=== PATIENT | male | born 1945 | race Caucasian/White ===

== ENCOUNTER 2022-06-23 13:48 | Emergency (ER) | payer MEDICARE, SELFPAY ==
--- NOTE | ~2022-06-23 | CT_ITS ---
EXAMINATION: CT ANGIOGRAM OF THE CHEST WITH AND WITHOUT CONTRAST (CT PULMONARY ANGIOGRAM FOR PE) CLINICAL INFORMATION: Reason for Exam weakness tachycardia with shortness of breath COMPARISON: None TECHNIQUE: Prior to contrast administration, noncontrast localization images were obtained. Subsequently, multidetector volumetric imaging was performed from the thoracic inlet to below the diaphragms following the administration of 65 mL Omnipaque 350 intravenous contrast. No contrast reaction reported Sagittal, coronal, and MIP oblique sagittal reformatted images were obtained on the CT workstation, uploaded to PACS, and reviewed. This CT examination was performed using dose optimization techniques as appropriate, variously including the following: *Automated exposure control *Adjustment of mA and/or kV according to patient size (this includes techniques or standardized protocols for targeted exams where dose is matched to indication/reason for exam; i.e. extremities or head) *Use of iterative reconstruction technique Total exam dose-length product 274 mGy-cm FINDINGS: QUALITY OF STUDY/CONTRAST BOLUS: Satisfactory. PULMONARY ARTERIES: There is no filling defect to suggest a pulmonary embolism. There is reflux of contrast into the hepatic veins. There is no bowing of the interventricular septum. The thoracic inlet is within normal limits. The axillary regions are unremarkable. Partially visualized upper abdominal structures within normal limits. Cystic structure on the inferior most cuts may represent partial imaging of the renal cyst. Centrally there is some increased adenopathy in the mediastinum. There is also felt to be some right greater than left hilar adenopathy. Right lung; Dense consolidation in the right upper lung. Scattered areas of lucency in some areas are noted here. Patchy infiltrate in the right middle lobe. There is a small right-sided effusion. Mild right basilar atelectasis. Some mild patchy airspace opacities in the right lower lobe. Left lung; Left basilar atelectasis or small area of infiltrate. Trace left-sided effusion. Review of the bone windows does not demonstrate evidence for bony lesion. CT/CT angio chest PE protocol IMPRESSION: There is no filling defect here to suggest a pulmonary bolus. There is reflux of contrast however into the hepatic veins of uncertain etiology. Dense consolidation in the right upper lung. Otherwise patchy infiltrates in the right lower lobe and right middle lobe and left base. Short-term Follow-up would be recommended here as an underlying lesion cannot be excluded in this area of dense right upper lung opacity. Prominent central adenopathy and right hilar adenopathy may well be reactive. Again Attention to follow-up VTE: negative
[2022-06-23 14:02] VITALS: BP 116/65; PULSE 130; PULSE 89; RESP 16; TEMP 36.6; O2SAT 99; BMI 19.3
[2022-06-23 14:13] VITALS: BP 118/73; PULSE 120; RESP 20; O2SAT 100
--- NOTE | 2022-06-23 14:49 | ECG_ITS ---
Test Reason : DYSRYTHMIA Blood Pressure : / mmHG Vent. Rate : 116 BPM Atrial Rate : 116 BPM P-R Int : 160 ms QRS Dur : 082 ms QT Int : 316 ms P-R-T Axes : 039 -05 148 degrees QTc Int : 439 ms Sinus tachycardia with Premature atrial complexes Inferior infarct , age undetermined Anterior infarct , age undetermined Marked ST abnormality, possible lateral subendocardial injury Abnormal ECG No previous ECGs available Referred By: Shadi Sharp Electronically Signed By:NONI RODRIGUEZ
--- NOTE | 2022-06-23 14:49 | PC.NURSE ---
report received from MARGI Calhoun. Pt is resting comfortably on stretcher at this time. pt reports having diffuse breathing pain across his chest, into upper shoulders. Pt is afib on the monitor at a rate of 110s-140s. Pt is having a couple PVCs per minute along with less than 1 second pauses in between. Dr. Sharp made aware. This RN placed order for EKG, PCT Elie in room at this time performing EKG. Pt also reports feeling weaker than usual
--- NOTE | 2022-06-23 14:55 | ED.WEAKNESS ---
HPI - Weakness General Chief complaint: Weakness Stated complaint: WEAKNESS Time Seen by Provider: 06/23/22 14:48 Source: patient, EMS and RN notes reviewed Mode of arrival: EMS Limitations: no limitations History of Present Illness HPI Narrative: 77 year old male presents to the ER after failing to thrive and worsening shortness of breath for the past several months. He saw his PCP and was sent here. No previous visits here the only history we know about is that he has history of afib. He is in Afib with RVR here. He is unable to tell me about copd or chf. He is tachycardic no falls injuries chest pain nausea or vomiting. He is spitting into a bag. He is short of breath. Related Data Allergies Allergy/AdvReac Type Severity Reaction Status Date / Time No Known Allergies Allergy Verified 06/23/22 14:48 Review of Systems Review of Systems: Review of systems: General: fever chillsPatient denies any recent illness or falls Musculoskeletal: Denies back pain or body aches or other injuries HEENT: denies headache, runny nose, ear pain Respiratory: shortness of breath, cough Cardiovascular: no chest pain or palpitations : denies dysuria, frequency Abdomen: no nausea vomiting denies abdominal pain Extremities: no swelling, no pain Skin: no diaphoresis Yes all other systems are reviewed and are negative PMFSH Social History Social History Advance Directives: Yes Advance Directives Information Provided: Yes Advance Directives on File: No Physical Exam Vital Signs: Vital Signs: Last Vital Signs Temp 97.9 F 06/23/22 14:02 Pulse 111 H 06/23/22 17:18 Resp 16 06/23/22 17:18 BP 93/60 06/23/22 17:18 Pulse Ox 99 06/23/22 17:18 O2 Del Method 06/23/22 17:18 BMI result Body Mass Index 20.5 General: Well-appearing well-nourished in no signs of distress HEENT: Normocephalic atraumatic Neck: No signs of JVD, no masses no tenderness or lymphadenopathy Cardiovascular: Regular rate and rhythm Respiratory: Clear to auscultation bilaterally Abdomen: Soft nontender no masses Extremities: Normal pedal pulses no signs of edema Skin: Dry warm no rashes Back: No tenderness full ROM Medications Administered Discontinued Medications Generic Name Dose Route Start Last Admin Trade Name Freq PRN Reason Stop Dose Admin Albuterol Sulfate 4 puff 06/23/22 14:56 06/23/22 15:28 Albuterol Sulfate 90 Mcg 8 Gm Inhaler INHALE 06/23/22 14:57 4 puff ONCE ONE Administration Aspirin 324 mg 06/23/22 16:21 06/23/22 17:06 Aspirin 81 Mg Tab.Chew PO 06/23/22 16:22 324 mg ONCE ONE Administration Sodium Chloride 1,000 mls @ 999 mls/hr 06/23/22 15:00 06/23/22 16:12 Ns IV 06/23/22 16:00 Infused .Q1H1M KATTY Infusion Vancomycin HCl 1,500 mg/ 500 mls @ 333.333 mls/hr 06/23/22 16:27 06/23/22 17:14 Sodium Chloride IV 06/23/22 17:56 333.33 mls/hr ONCE ONE Administration Piperacillin Sod/Tazobactam 100 mls @ 200 mls/hr 06/23/22 16:27 06/23/22 17:27 Sod 4.5 gm/ Sodium Chloride IV 06/23/22 16:56 Infused ONCE ONE Infusion Sodium Chloride 1,000 mls @ 999 mls/hr 06/23/22 17:00 06/23/22 17:04 Ns IV 06/23/22 18:00 999 mls/hr .Q1H1M KATTY Administration Iohexol 100 ml 06/23/22 16:42 06/23/22 16:42 Iohexol 350 Mg/Ml 100 Ml Infus..Btl IV 06/23/22 16:43 65 ml ONCE ONE Administration Prednisone 60 mg 06/23/22 14:56 06/23/22 15:28 Prednisone 20 Mg Tablet PO 06/23/22 14:57 60 mg ONCE ONE Administration Medical Decision Making Medical Decision Making MDM Narrative: Patient 2 months of decreased appetite increased fatigue and not feeling well he states he is very short of breath comes with AFib RVR at home and history for the patient after the patient prednisone will give the patient some breathing treatments this evening the patient feeling better also get a workup for congestive heart failure he had x-rays labs and a septic workup on the patient. Patient with elevated WBC count found to have a elevated troponin and WBC' count I will start on vancomycin and zosyn. I did speak with Dr. Encarnacion who reviewed the chart as well and didn't think the EKG was ischemic or that he had afib. WAnted heparin from a cardiac standpoint. Heparin ordered. Lactic is 2.2 I will give fluids and continue to treat. I did see the patient with Dr. Aggarwal who did see the patient. We reviewed the CT which shows lobar pneumonia. Already given zosyn and vancomycin. Even with the read of pneumonia with elevated WBC count. He still feels patient needs to go to another facility even with cardiology being comfortable keeping the patient. Patient comfortable at the bedside. Still pending [facility] to call back. 1800 Repeat EKG 109 sinus tachycardia still with ST depression but much less pronouced at this time. I spoke with [facility] who will accept the patient to the CCU accepted by Dr. Ortiz. I spoke with the cardiology attending who agreed with the transfer. I again spoke with Dr. Aggarwal who did not want the patient to get 1 liter bolus and felt small amount of fluids were more ideal for the patient with his global cardiomyopathy and agreed would do better with little fluids. I did cancel the fluids. Concern for CHF and and fluids overload as his IVC is already dilated on CT and US that was done at bedside. WE will avoid too much fluid in this situation even with pneumonia. Differential Diagnosis Differential Diagnoses: The differential diagnosis associated with the presentation includes Congestive heart failure sepsis UTI pneumonia influenza COVID-19 dehydration electrolyte abnormalities starvation. Admission/Observation Consideration of admission/observation: Escalation of care including admission/observation considered Consult Healthcare Provider Management of the patient was discussed with: Hospitalist and Manager Application Development Cardiology Lab Data MDM Lab Attestation statement: I reviewed the patient's lab results. Result Diagrams: 06/23/22 15:25 06/23/22 15:25 Labs: Lab Results 06/23/22 06/23/22 06/23/22 Range/Units 15:25 15:25 15:25 WBC 25.2 H (4.8-10.8) X10*3/uL RBC 3.77 L (4.60-5.80) X10*6/uL Hgb 9.9 L (14.0-18.0) g/dl Hct 29.8 L (42.0-52.0) % MCV 79.0 L (80.0-98.0) fL MCH 26.3 L (27.0-33.0) pg MCHC 33.2 (31.0-36.0) g/dl RDW 16.1 H (11.0-16.0) % Plt Count 566 H (160-400) X10*3/uL MPV 9.9 (9.4-12.4) fL Immature Gran % (Auto) 0.6 H (0.0-0.4) % Neut % (Auto) 93.8 H (45-73) % Lymph % (Auto) 1.6 L (20-40) % [place] % (Auto) 3.8 (2-11) % Eos % (Auto) 0.0 (0-4) % Baso % (Auto) 0.2 (0-2) % Lymph # (Auto) 0.4 L (1.2-4.9) X10*3/uL [place] # (Auto) 1.0 (0.1-1.2) X10*3/uL Eos # (Auto) 0.0 (0.0-0.4) X10*3/uL Baso # (Auto) 0.1 (0.0-0.2) X10*3/uL Abs Immat Gran (auto) 0.16 H (0.00-0.03) X10*3/uL Absolute Neuts (auto) 23.6 H (2.0-8.3) x10*3/uL Absolute Nucleated RBC 0.000 (0.0-0.012) X10*3/uL Nucleated RBC % (auto) 0.0 (0.0-0.2) /100WBC Smear Tech's Comments VERIFIED PT (10.0-13.1) SEC INR (0.9-1.1) aPTT Heparin Protocol (53-77.9) SEC D-Dimer High Sensitivty NG/ML Sodium 134 L (135-145) mmol/L Potassium 3.2 L (3.3-5.1) mmol/L Chloride 97 (96-108) mmol/L Carbon Dioxide 23 (22-29) mmol/L Anion Gap 17 (12-20) BUN 22 H (9-16) mg/dL Creatinine 0.79 (0.5-1.4) mg/dL Estim Creat Clear Calc 63.8 Estimated GFR > 60 Random Glucose 121 H (60-115) mg/dL Lactic Acid (0.5-2.0) mmol/L Calcium 8.7 (8.4-10.2) mg/dL Total Bilirubin 1.0 (0.0-1.0) mg/dL Direct Bilirubin 0.5 (0.0-0.5) mg/dL AST 18 (5-37) U/L ALT 18 (0-40) U/L Alkaline Phosphatase 178 H (39-117) U/L Troponin I High Sens 277.7 H* (<3.5-35.0) ng/L B-Natriuretic Peptide (<100) pg/mL Total Protein 6.5 (6.5-8.0) g/dL Albumin 3.2 L (3.5-5.0) g/dL Lipase 10 (8-78) U/L COVID-19 (DELFINA) (Negative) COVID-19 Clin Com Influenza Type A (IRA) (Negative) Influenza Type B (IRA) (Negative) Influenza A & B Note 06/23/22 06/23/22 06/23/22 Range/Units 15:25 15:25 15:25 WBC (4.8-10.8) X10*3/uL RBC (4.60-5.80) X10*6/uL Hgb (14.0-18.0) g/dl Hct (42.0-52.0) % MCV (80.0-98.0) fL MCH (27.0-33.0) pg MCHC (31.0-36.0) g/dl RDW (11.0-16.0) % Plt Count (160-400) X10*3/uL MPV (9.4-12.4) fL Immature Gran % (Auto) (0.0-0.4) % Neut % (Auto) (45-73) % Lymph % (Auto) (20-40) % [place] % (Auto) (2-11) % Eos % (Auto) (0-4) % Baso % (Auto) (0-2) % Lymph # (Auto) (1.2-4.9) X10*3/uL [place] # (Auto) (0.1-1.2) X10*3/uL Eos # (Auto) (0.0-0.4) X10*3/uL Baso # (Auto) (0.0-0.2) X10*3/uL Abs Immat Gran (auto) (0.00-0.03) X10*3/uL Absolute Neuts (auto) (2.0-8.3) x10*3/uL Absolute Nucleated RBC (0.0-0.012) X10*3/uL Nucleated RBC % (auto) (0.0-0.2) /100WBC Smear Tech's Comments PT (10.0-13.1) SEC INR (0.9-1.1) aPTT Heparin Protocol (53-77.9) SEC D-Dimer High Sensitivty NG/ML Sodium (135-145) mmol/L Potassium (3.3-5.1) mmol/L Chloride (96-108) mmol/L Carbon Dioxide (22-29) mmol/L Anion Gap (12-20) BUN (9-16) mg/dL Creatinine (0.5-1.4) mg/dL Estim Creat Clear Calc Estimated GFR Random Glucose (60-115) mg/dL Lactic Acid (0.5-2.0) mmol/L Calcium (8.4-10.2) mg/dL Total Bilirubin (0.0-1.0) mg/dL Direct Bilirubin (0.0-0.5) mg/dL AST (5-37) U/L ALT (0-40) U/L Alkaline Phosphatase (39-117) U/L Troponin I High Sens (<3.5-35.0) ng/L B-Natriuretic Peptide 537 H (<100) pg/mL Total Protein (6.5-8.0) g/dL Albumin (3.5-5.0) g/dL Lipase (8-78) U/L COVID-19 (DELFINA) Negative (Negative) COVID-19 Clin Com See Note Influenza Type A (IRA) Negative (Negative) Influenza Type B (IRA) Negative (Negative) Influenza A & B Note See Note 06/23/22 06/23/22 06/23/22 Range/Units 15:51 17:35 17:43 WBC (4.8-10.8) X10*3/uL RBC (4.60-5.80) X10*6/uL Hgb (14.0-18.0) g/dl Hct (42.0-52.0) % MCV (80.0-98.0) fL MCH (27.0-33.0) pg MCHC (31.0-36.0) g/dl RDW (11.0-16.0) % Plt Count (160-400) X10*3/uL MPV (9.4-12.4) fL Immature Gran % (Auto) (0.0-0.4) % Neut % (Auto) (45-73) % Lymph % (Auto) (20-40) % [place] % (Auto) (2-11) % Eos % (Auto) (0-4) % Baso % (Auto) (0-2) % Lymph # (Auto) (1.2-4.9) X10*3/uL [place] # (Auto) (0.1-1.2) X10*3/uL Eos # (Auto) (0.0-0.4) X10*3/uL Baso # (Auto) (0.0-0.2) X10*3/uL Abs Immat Gran (auto) (0.00-0.03) X10*3/uL Absolute Neuts (auto) (2.0-8.3) x10*3/uL Absolute Nucleated RBC (0.0-0.012) X10*3/uL Nucleated RBC % (auto) (0.0-0.2) /100WBC Smear Tech's Comments PT 37.1 H (10.0-13.1) SEC INR 3.1 H (0.9-1.1) aPTT Heparin Protocol 35.7 L (53-77.9) SEC D-Dimer High Sensitivty 393 NG/ML Sodium (135-145) mmol/L Potassium (3.3-5.1) mmol/L Chloride (96-108) mmol/L Carbon Dioxide (22-29) mmol/L Anion Gap (12-20) BUN (9-16) mg/dL Creatinine (0.5-1.4) mg/dL Estim Creat Clear Calc Estimated GFR Random Glucose (60-115) mg/dL Lactic Acid 2.2 H* 2.0 (0.5-2.0) mmol/L Calcium (8.4-10.2) mg/dL Total Bilirubin (0.0-1.0) mg/dL Direct Bilirubin (0.0-0.5) mg/dL AST (5-37) U/L ALT (0-40) U/L Alkaline Phosphatase (39-117) U/L Troponin I High Sens (<3.5-35.0) ng/L B-Natriuretic Peptide (<100) pg/mL Total Protein (6.5-8.0) g/dL Albumin (3.5-5.0) g/dL Lipase (8-78) U/L COVID-19 (DELFINA) (Negative) COVID-19 Clin Com Influenza Type A (IRA) (Negative) Influenza Type B (IRA) (Negative) Influenza A & B Note Independent Interpretation I performed an independent interpretation of an: EKG Interpretation: EKG rate 116 sinus tachycardia normal intervals no signs of ischemia there is some ST depression in the inferior lateral leads V4 through V6 Critical Care Time Critical Care Time Critical Care Time: Yes Total Critical Care Time: 95 Attestation: Pnuemonia, sepsis, consultation with ICU Dr. Aggarwal with bedside evaluation and call and acceptance to [facility]. Discharge Plan Discharge Clinical Impression: Sepsis, Dehydration, Pneumonia, Elevated troponin, Multifocal atrial tachycardia, Cardiomyopathy Patient Disposition: [facility]
[2022-06-23] MEDS: 0.9 % Sodium Chloride 1,000 ML 999 ML IV ×2 (15:02→17:04)
[2022-06-23] MEDS: Albuterol Sulfate 90 MCG 8 GM INHALER 4 PUFF INHALE (15:28)
[2022-06-23] MEDS: predniSONE 20 MG TABLET 60 MG PO (15:28)
[2022-06-23 15:33] LABS: Basophils Absolute Auto 0.1 X10*3/uL (0.0-0.2); Basophils Percent Auto 0.2 % (0-2); Hematocrit 29.8 % (42.0-52.0); Hemoglobin 9.9 g/dl (14.0-18.0); Imm Gran Abs Auto 0.16 X10*3/uL (0.00-0.03); Imm Gran Pct Auto 0.6 % (0.0-0.4); Lymphocytes Absolute Auto 0.4 X10*3/uL (1.2-4.9); Lymphocytes Percent Auto 1.6 % (20-40); MANUAL DIFF FLAG SCAN; Mean Corpuscular HGB Conc 33.2 g/dl (31.0-36.0); Mean Corpuscular Hemoglobin 26.3 pg (27.0-33.0); Mean Platelet Volume 9.9 fL (9.4-12.4); Monocytes Percent Auto 3.8 % (2-11); Neutrophils Absolute Auto 23.6 x10*3/uL (2.0-8.3); Neutrophils Percent Auto 93.8 % (45-73); Platelet Count 566 X10*3/uL (160-400); Red Blood Count 3.77 X10*6/uL (4.60-5.80); Red Cell Distribution Width 16.1 % (11.0-16.0); SCAN SMEAR FLAG 1; White Blood Count 25.2 X10*3/uL (4.8-10.8)
[2022-06-23 15:49] LABS: COVID-19 Test Negative (Negative); IDNOW Serial# 16C4AD1C; IDNOW Serial# BCCEAD1C; Influenza A Negative (Negative); Influenza B2 Negative (Negative)
[2022-06-23 15:54] LABS: Alanine Aminotransferase 18 U/L (0-40); Albumin Level 3.2 g/dL (3.5-5.0); Alkaline Phosphatase 178 U/L (39-117); Anion Gap 17 (12-20); Aspartate Amino Transferase 18 U/L (5-37); Bilirubin Direct 0.5 mg/dL (0.0-0.5); Blood Urea Nitrogen 22 mg/dL (9-16); Calcium 8.7 mg/dL (8.4-10.2); Carbon Dioxide 23 mmol/L (22-29); Chloride 97 mmol/L (96-108); Creatinine Clr Calc Pharmacy 63.8; Estimated Glomerular Filt Rate > 60; Glucose Random 121 mg/dL (60-115); Lipase 10 U/L (8-78); Potassium 3.2 mmol/L (3.3-5.1); Sodium 134 mmol/L (135-145); Total Protein 6.5 g/dL (6.5-8.0)
[2022-06-23 15:58] LABS: B Type Natriuretic Peptide 537 pg/mL (<100)
[2022-06-23 16:10] LABS: Troponin-I High Sensitivity 277.7 ng/L (<3.5-35.0)
[2022-06-23] MEDS: iohexoL 350 MG/ML 100 ML INFUS..BTL IV (16:42)
[2022-06-23 16:48] LABS: Lactic Acid 2.2 mmol/L (0.5-2.0)
[2022-06-23 16:54] VITALS: BMI 20.5
[2022-06-23 16:55] VITALS: PULSE 100; RESP 20; O2SAT 98
[2022-06-23] MEDS: Piperacillin Sodium/Tazobactam 4.5 GM in 0.9 % Sodium Chloride 100 ML IV (17:02)
[2022-06-23] MEDS: Aspirin 81 MG TAB.CHEW 324 MG PO (17:06)
[2022-06-23 17:09] LABS: SLIDE REVIEW VERIFIED
[2022-06-23] MEDS: vancomycin HCL 1,500 MG in 0.9 % Sodium Chloride 500 ML 333.33 MG IV (17:14)
[2022-06-23 17:18] VITALS: BP 93/60; PULSE 111; RESP 16; O2SAT 99
--- NOTE | 2022-06-23 17:20 | ECG_ITS ---
Test Reason : REPEAT Blood Pressure : / mmHG Vent. Rate : 109 BPM Atrial Rate : 109 BPM P-R Int : 168 ms QRS Dur : 080 ms QT Int : 354 ms P-R-T Axes : 065 001 098 degrees QTc Int : 476 ms Sinus tachycardia with occasional Premature ventricular complexes Sinus Arrhythmia Possible Inferior infarct (cited on or before 23-JUN-2022) Cannot rule out Anterior infarct (cited on or before 23-JUN-2022) Abnormal ECG When compared with ECG of 23-JUN-2022 14:54, Premature ventricular complexes are now Present Referred By: Shadi Sharp Electronically Signed By:NONI RODRIGUEZ
--- NOTE | 2022-06-23 17:51 | W.PM.CCCN ---
History of Present Illness Data of Consult Service Date: 06/23/22 Requesting physician: Santi Sharp Primary Care Provider: Valentina Villela NP HPI Reason for consult: Chest pain/hypotension 77-year-old male who appears cachectic and at rest is at least mildly tachypneic but without using accessory muscles and no diaphragmatic effort he appears to be in a multifocal atrial tachycardia rhythm is irregular heart rate is in the 1 teens but he has got diminished R-wave progression V1 to V3 and 3 in AVF with significant clockwise rotation and significant diffuse ST segment depression with some elevation in lead AVR and in anterior precordial leads V1 to V3 He describes a pleuritic pain that he feels back and forth across the shoulder blades and his chest with any minimal exertion even attempting to put on a piece of clothing he is for all intents and purposes a [place] [employer] class 4 and he has had very significant anorexia and weight loss but no distinct GI pain no inability to hold his food or drink down just very poor intake and the only cardiac history that he he believes he is aware of his paroxysmal atrial fibrillation He was a former smoker stopped 25 years ago when he is nondiabetic he has not noticed necessarily a productive cough he has not had fever or chills but he clearly has a degree of orthopnea as well Along with this presentation what is of concern is that is troponin is 277 and he has got the ST-T changes on his a EKG in a.m. and I did bedside echo unbeknownst to him his ejection fraction is between 10 and 15% with severe diffuse hypokinesis and what looks like apical akinesis right ventricle does not appear to be enlarged but there is no aortic valve stenosis but he has got a very enlarged inferior vena cava with lack of inspiratory response so he clearly has an elevated filling pressures but biventricular failure but predominant left heart failure from what I can see Review of Systems Review of Systems: Yes all other systems are reviewed and are negative PMFSH Social History Social History Advance Directives: Yes Advance Directives Information Provided: Yes Advance Directives on File: No Meds Allergies Allergy/AdvReac Type Severity Reaction Status Date / Time No Known Allergies Allergy Verified 06/23/22 14:48 Active Medications: Current Medications Heparin Sodium (Porcine) (Heparin Sodium,Porcine 5,000 Unit/Ml Vial) 2,500 unit 40 unit/kg (2500 unit) IVPUSH PROTOCOL BOLUS PRN; Protocol PRN Reason: 40 unit/kg - Heparin Protocol Heparin Sodium (Porcine) (Heparin Sodium,Porcine 5,000 Unit/Ml Vial) 5,000 unit 80 unit/kg (5000 unit) IVPUSH PROTOCOL BOLUS PRN; Protocol PRN Reason: 80 unit/kg - Heparin Protocol Vancomycin HCl 1,500 mg/ (Sodium Chloride) 500 mls @ 333.333 mls/hr IV ONCE ONE Stop: 06/23/22 17:56 Last Admin: 06/23/22 17:14 Dose: 333.33 mls/hr Sodium Chloride (Ns) 1,000 mls @ 999 mls/hr IV .Q1H1M KATTY Stop: 06/23/22 18:00 Last Admin: 06/23/22 17:04 Dose: 999 mls/hr Heparin Sodium/Sodium Chloride (Heparin Sodium,Porcine/1/2ns) 25,000 unit in 250 mls @ 0 mls/hr IVCONT .Q0M KATTY; Protocol Pharmacy Consult (Consult Rx Perform Med Rec) 1 each MISCELLANE ONCE PRN PRN Reason: Consult order Pharmacy Consult (Consult Rx Perform Med Rec) 1 each MISCELLANE ONCE PRN PRN Reason: Consult order Physical Exam Vital Signs: Vital Signs: Last Vital Signs Temp 97.9 F 06/23/22 14:02 Pulse 111 H 06/23/22 17:18 Resp 16 06/23/22 17:18 BP 93/60 06/23/22 17:18 Pulse Ox 99 06/23/22 17:18 O2 Del Method 06/23/22 17:18 BMI result Body Mass Index 20.5 Cachectic appearance but he is alert oriented and nonfocal neurologically And he is tachypneic at at rest but he on nasal cannula he has got a compensated oxygen saturation and tachycardic with diffuse ST-T changes but preserved renal function Coarse rales over these his right upper lobe posteriorly no other adventitious sounds Bedside echo with severe congestive cardiomyopathy quite likely ischemic in origin given his interscapular pain and troponin positivity with 10-15% ejection fraction no primary valve or pericardial disease but IVC distension indicating elevated right heart filling pressures Abdomen is soft no palpable organomegaly No acrocyanosis no livedo no palpable peripheral edema Results Labs 06/23/22 15:25 06/23/22 15:25 Labs: Short CBC 06/23/22 Range/Units 15:25 WBC 25.2 H (4.8-10.8) X10*3/uL Hgb 9.9 L (14.0-18.0) g/dl Hct 29.8 L (42.0-52.0) % Plt Count 566 H (160-400) X10*3/uL BMP 06/23/22 15:25 Sodium 134 L Potassium 3.2 L Chloride 97 Carbon Dioxide 23 BUN 22 H Creatinine 0.79 Calcium 8.7 Liver Function 06/23/22 Range/Units 15:25 Total Bilirubin 1.0 (0.0-1.0) mg/dL Direct Bilirubin 0.5 (0.0-0.5) mg/dL AST 18 (5-37) U/L ALT 18 (0-40) U/L Alkaline Phosphatase 178 H (39-117) U/L Albumin 3.2 L (3.5-5.0) g/dL Assessment and Plan (1) Sepsis: Status: Acute (2) Pneumonia: Status: Acute (3) Elevated troponin: Status: Acute (4) Abnormal EKG: Status: Acute (5) Multifocal atrial tachycardia: Status: Acute (6) Ischemic congestive cardiomyopathy: Status: Acute (7) Non-ST elevation (NSTEMI) myocardial infarction: Status: Acute (8) Hyponatremia with decreased serum osmolality: Status: Acute (9) Hypokalemia: Status: Acute Plan A the a I see that he has got more than 1 issue going on there is no evidence here of pulmonary infarct no source for pulmonary embolism on the CT scan so it looks like he has got a community-acquired lobar pneumonia probably bacterial and definitely covering him with vancomycin and meropenem would be the safe choice but in addition he sounds like he has a form of acute coronary syndrome with normal renal function he does have a troponin elevation he has active chest discomfort with any little movement or motion which is interscapular and fairly classic along with diffuse ST segment depression segmentally poor R-wave progression in the anterior precordium with a severe cardiomyopathy ejection fraction 10-15% but akinetic apex and evidence of biventricular failure so he is not a candidate for fluid loading because of this my would place him on maintenance fluids only and I would keep that sparing to try to correct his hyponatremia to a degree but the problem is with the cardiac issue and the multifocal atrial tachycardia mechanism he can not be supported chemically with a sympathomimetic without making issues worse including the ischemia and this may very well be a manifestation of hibernating myocardium in the face of severe triple-vessel disease with the collateral source being threatened at this at this point a.m. if support is needed it should be mechanical and I would consider intra-aortic balloon pump and to being in an institution where if the laborer electroplating were acutely needed he Has got the facility right there for now I would start him on aspirin and full-dose heparin treating him as an unstable ischemic and antibiotics as above maintenance fluids use of BiPAP as needed but strongly consider transfer to an institution that could support him if necessary mechanically with an intra-aortic balloon pump He will need a Lind catheter so we can closely monitor his urine output and I would also send off urine sodium and chloride Time Spent With Patient Time: Total time managing care of this patient today _60___ minutes.
--- NOTE | 2022-06-23 17:53 | PC.NURSE ---
IV abx started on pt, awaiting PTT to begin heparin drip
[2022-06-23 17:55] LABS: Reflex Lactate? Lactic Acid Added
[2022-06-23 17:57] LABS: INTERNATIONAL NORM RATIO 3.1 (0.9-1.1); Prothrombin Time 37.1 SEC (10.0-13.1)
[2022-06-23 17:59] LABS: D Dimer High Sensitivity 393 NG/ML
[2022-06-23 18:00] LABS: PTT Heparin Drip 35.7 SEC (53-77.9)
[2022-06-23] MEDS: Heparin Sodium,Porcine/1/2NS 25,000 UNIT/250 ML IV.SOLN 8.82 UNIT IVCONT (18:03)
[2022-06-23 18:14] LABS: Magnesium 1.8 mg/dL (1.6-2.6)
--- NOTE | 2022-06-23 18:19 | PHA.MEDREC ---
Pharmacy Consult ? Medication Reconciliation Pharmacy has completed the medication reconciliation.spoke with patient. pt was very specific about meds he takes at bedtime, med rec updated accordingly
[2022-06-23 18:20] LABS: Troponin-I High Sensitivity 402.4 ng/L (<3.5-35.0)
--- NOTE | 2022-06-23 18:46 | PC.NURSE ---
pt remains afib on the monitor with occasional PVCs, pt reports some mild SOB. Pt josephine be transferred to [facility] when a room is available
[2022-06-23 18:59] LABS: Hematocrit 27.2 % (42.0-52.0); Hemoglobin 9.2 g/dl (14.0-18.0); Mean Corpuscular HGB Conc 33.8 g/dl (31.0-36.0); Mean Corpuscular Hemoglobin 26.4 pg (27.0-33.0); Mean Corpuscular Volume 77.9 fL (80.0-98.0); Mean Platelet Volume 9.5 fL (9.4-12.4); Platelet Count 525 X10*3/uL (160-400); Red Blood Count 3.49 X10*6/uL (4.60-5.80); Red Cell Distribution Width 16.4 % (11.0-16.0); White Blood Count 24.4 X10*3/uL (4.8-10.8)
--- NOTE | 2022-06-23 19:02 | PC.NURSE ---
attempted to call to [facility], spoke with patient care secretary who told me to call back later
[2022-06-23 19:07] LABS: Venous Blood Gas Refer to POC result
[2022-06-23 19:08] LABS: Appearance Urine Cloudy; Color Urine Dark Yellow; Glucose Urine UA Negative (Negative); Leukocyte Esterase Urine Trace (Negative); Nitrite Urine Negative (Negative); PH 5.5 (5.0-9.0); Specific Gravity - Urine >= 1.030 (1.005-1.025); UMIC TRIGGER UACC YES; Urine Blood Moderate (2+) (Negative); Urine Ketones 15 mg/dL (Negative); Urine Protein 100 (2+) mg/dL (Neg-Trace)
[2022-06-23 19:08] LABS: VBG HCO3 17 mmol/L (22-26); VBG pCO2 26 mmHg; VBG pH 7.43 (7.32-7.43); VBG pO2 49 mmHg
[2022-06-23 19:21] LABS: Bacteria Urine None Seen (None Seen); Granular Casts Urine Present; RBC Urine >20 /HPF (0-2); WBC Urine 0-5 /HPF (0-5)
== END 2022-06-23 19:33 | disposition short-term general hospital (02) ==
PROVIDERS: Internal Medicine Cardiovascular Disease; Emergency Provider Student in an Organized Health Care Education/Training Program; PCP Nurse Practitioner Family
DX: A41.9 Sepsis, unspecified organism (principal); J18.9 Pneumonia, unspecified organism; E86.0 Dehydration; I42.9 Cardiomyopathy, unspecified; R77.8 Other specified abnormalities of plasma proteins; R06.02 Shortness of breath; Z20.822 Contact with and (suspected) exposure to COVID-19; Z79.899 Other long term (current) drug therapy
CPT/HCPCS: 71275; 80048; 80076; 81001; 82436; 82803; 83605; 83690; 83735; 83880; 84300; 84484; 85025; 85027; 85379; 85610; 85730; 87040; 87502; 87635; 93005; 96361; 96365; 96367; 96375; 99285; J1643; J2543; J3371; Q9967